=== PATIENT | male | born 1970 | race Caucasian/White ===

== ENCOUNTER 2017-05-20 08:55 | Emergency (ER) | payer BC ==
[~2017-05-20] VITALS: Ht 185.4 cm; Wt 110.0 kg
[2017-05-20 08:57] VITALS: BP 125/94; TEMP 98.2; O2SAT 99
[2017-05-20 09:07] VITALS: BP 116/81; PULSE 55; RESP 24; O2SAT 100
[2017-05-20] MEDS ORDERED: ONDANSETRON HCL 4 MG/2 ML VIAL IVP ONE (09:45)
[2017-05-20] MEDS ORDERED: KETOROLAC TROMETHAMINE 30 MG/ML (IVP) VIAL IVP ONE (09:45)
[2017-05-20] MEDS ORDERED: SODIUM CHLORIDE 0.9% FLUSH 10 ML FLUSH IV FLUSH PRN (09:45)
[2017-05-20 10:34] LABS: BACTERIA, URINE FEW /hpf; BLOOD, URINE LARGE (NEG); CALCIUM OXALATE CRYSTALS,URINE OCC /hpf; GLUCOSE,URINE NEG (NEG); KETONE, URINE NEG (NEG); MUCUS URINE FEW /lpf (OCC); NITRITE,URINE NEG (NEG); PH, URINE 5.5 (5.0-8.5)
[2017-05-20 10:36] LABS: URINE COLOR YELLOW (YELLW/STRAW)
[2017-05-20 10:37] LABS: COMMENT (UR) CULT NOT INDICATED; CULTURE IF INDICATED CULT NOT INDICATED
--- NOTE | 2017-05-20 10:39 | RADRPT ---
EXAM DATE/TIME: 05/20/2017 10:19 [facility] COMPARISON: No previous studies available for comparison. INDICATIONS : Left flank pain since this morning ORAL CONTRAST: No oral contrast ingested. RADIATION DOSE: 8.53 CTDIvol (mGy) MEDICAL HISTORY : Renal calculi. SURGICAL HISTORY : Appendectomy. ENCOUNTER: Initial ACUITY: 1 day PAIN SCALE: 5/10 LOCATION: Left flank TECHNIQUE: Volumetric scanning of the abdomen and pelvis was performed. Using automated exposure control and ad justment of the mA and/or kV according to patient size, radiation dose was kept as low as reasonably achievable to obtain optimal diagnostic quality images. DICOM format image data is available electro nically for review and comparison. FINDINGS: CT Abdomen: The liver, spleen, pancreas, right kidney, adrenals are unremarkable. There is an approxi mate 6 mm right proximal ureteral stone past the UPJ causing slight hydronephrosis. There are 5 separ ate small stones in the left kidney the largest measures 5 mm in size. There is no evidence for any a ppreciable pathological adenopathy, free fluid, or bowel obstruction. CT pelvis: There is no evidence for mass, abscess formation, or any significant adenopathy within the pelvis. CONCLUSION: There is slight hydronephrosis in the left kidney due to an approximate 6 mm proximal ureteral stone with additional stones in the left kidney as well. Jamie Ward MD on May 20, 2017 at 10:32 Board Certified Radiologist. This report was verified electronically.
[2017-05-20 10:44] LABS: AUTOMATED NEUTROPHIL # 5.5 TH/MM3 (1.8-7.7); BASOPHIL # 0.1 TH/MM3 (0-0.2); BASOPHIL % 0.7 % (0.0-2.0); EOSINOPHIL # 0.3 TH/MM3 (0-0.4); HEMATOCRIT 46.2 % (39.0-51.0); HEMO FLAGS DIFF FINAL; LYMPH % 29.7 % (9.0-44.0); LYMPHOCYTE # 2.7 TH/MM3 (1.0-4.8); MEAN CELL VOLUME 89.9 FL (80.0-100.0); MEAN CORPUSCULAR HEMOGLOBIN 30.3 PG (27.0-34.0); MEAN CORPUSCULAR HGB CONC 33.7 % (32.0-36.0); MONO % 7.1 % (0.0-8.0); NEUT % 59.5 % (16.0-70.0); PLATELET COUNT 253 TH/MM3 (150-450); RED BLOOD COUNT 5.14 MIL/MM3 (4.50-5.90); RED CELL DISTRIBUTION WIDTH 12.6 % (11.6-17.2); WHITE BLOOD COUNT 9.3 TH/MM3 (4.0-11.0)
--- NOTE | 2017-05-20 10:52 | PD ---
HPI Chief Complaint: Flank/Kidney Pain Time Seen by Provider: 09:09 Travel History International Travel<30 days: No Contact w/Intl Traveler<30days: No Traveled to known affect area: No History of Present Illness HPI 47-year-old male complains of left flank pain. It started this morning. He has been feeling nauseated. The pain radiates to the left lower quadrant. He noticed dark urine this morning. No fever. He believes he may have had trace blood in his urine a few days ago. He reports a prior history of kidney stones , twice prior. Onset sudden. Severity moderate to severe. PFSH Past Medical History Diminished Hearing: No Genitourinary: Yes (stones ) Past Surgical History Appendectomy: Yes Genitourinary Surgery: Yes (LITHOTRIPSY) Pacemaker: No Social History Alcohol Use: Yes Tobacco Use: No Substance Use: No Allergies-Medications (Allergen,Severity, Reaction): Coded Allergies: No Known Allergies (Verified , 05/20/17) Reported Meds & Prescriptions Reported Meds & Active Scripts Active Zofran Odt (Ondansetron Odt) 4 Mg Tab 4 Mg SL Q12HR PRN Flomax (Tamsulosin HCl) 0.4 Mg Cap 0.4 Mg PO HS Percocet (Oxycodone-Acetaminophen) 5-325 mg Tab 1-2 Tab PO Q6H PRN Review of Systems Except as stated in HPI: all other systems reviewed are Neg General / Constitutional: No: Fever Cardiovascular: No: Chest Pain or Discomfort, Palpitations, Irregular Rhythm Physical Exam Narrative GENERAL: 47-year-old male well-nourished well-developed mild to moderate distress SKIN: Warm and dry. HEAD: Atraumatic. Normocephalic. EYES: Pupils equal and round. No scleral icterus. No injection or drainage. ENT: No nasal bleeding or discharge. Mucous membranes pink and moist. NECK: Trachea midline. No JVD. CARDIOVASCULAR: Regular rate and rhythm. RESPIRATORY: No accessory muscle use. Clear to auscultation. Breath sounds equal bilaterally. GASTROINTESTINAL: Abdomen soft, non-tender, nondistended. Hepatic and splenic margins not palpable. Tenderness to percussion left flank MUSCULOSKELETAL: Extremities without clubbing, cyanosis, or edema. No obvious deformities. NEUROLOGICAL: Awake and alert. No obvious cranial nerve deficits. Motor grossly within normal limits. Five out of 5 muscle strength in the arms and legs. Normal speech. PSYCHIATRIC: Appropriate mood and affect; insight and judgment normal. Data Data Last Documented VS Vital Signs Date Time Temp Pulse Resp B/P (MAP) Pulse Ox O2 Delivery O2 Flow Rate FiO2 05/20/17 11:40 111/67 (82) 05/20/17 11:21 64 16 100 Room Air 05/20/17 08:57 98.2 Vital signs reviewed Orders Orders Basic Metabolic Panel (Bmp) (05/20/17 09:41) Complete Blood Count With Diff (05/20/17 09:41) Urinalysis - C+S If Indicated (05/20/17 09:41) Ct Abd/Pel W/O Iv Contrast (05/20/17 09:41) Iv Access Insert/Monitor (05/20/17 09:41) Ecg Monitoring (05/20/17 09:41) Oximetry (05/20/17 09:41) Ondansetron Inj (Zofran Inj) (05/20/17 09:45) Sodium Chloride 0.9% Flush (Ns Flush) (05/20/17 09:45) Ketorolac Inj (Toradol Inj) (05/20/17 09:45) Labs Laboratory Tests Test 05/20/17 09:55 White Blood Count 9.3 TH/MM3 Red Blood Count 5.14 MIL/MM3 Hemoglobin 15.6 GM/DL Hematocrit 46.2 % Mean Corpuscular Volume 89.9 FL Mean Corpuscular Hemoglobin 30.3 PG Mean Corpuscular Hemoglobin Concent 33.7 % Red Cell Distribution Width 12.6 % Platelet Count 253 TH/MM3 Mean Platelet Volume 8.3 FL Neutrophils (%) (Auto) 59.5 % Lymphocytes (%) (Auto) 29.7 % Monocytes (%) (Auto) 7.1 % Eosinophils (%) (Auto) 3.0 % Basophils (%) (Auto) 0.7 % Neutrophils # (Auto) 5.5 TH/MM3 Lymphocytes # (Auto) 2.7 TH/MM3 Monocytes # (Auto) 0.7 TH/MM3 Eosinophils # (Auto) 0.3 TH/MM3 Basophils # (Auto) 0.1 TH/MM3 CBC Comment DIFF FINAL Differential Comment Urine Color YELLOW Urine Turbidity HAZY Urine pH 5.5 Urine Specific [place] 1.032 Urine Protein 30 mg/dL Urine Glucose (UA) NEG mg/dL Urine Ketones NEG mg/dL Urine Occult Blood LARGE Urine Nitrite NEG Urine Bilirubin NEG Urine Urobilinogen LESS THAN 2.0 MG/DL Urine Leukocyte Esterase NEG Urine RBC /hpf Urine WBC 3 /hpf Urine Calcium Oxalate Crystals OCC /hpf Urine Bacteria FEW /hpf Urine Mucus FEW /lpf Microscopic Urinalysis Comment CULT NOT INDICATED Blood Urea Nitrogen 19 MG/DL Creatinine 0.99 MG/DL Random Glucose 112 MG/DL Calcium Level 8.3 MG/DL Sodium Level 137 MEQ/L Potassium Level 4.0 MEQ/L Chloride Level 103 MEQ/L Carbon Dioxide Level 25.7 MEQ/L Anion Gap 8 MEQ/L Estimat Glomerular Filtration Rate 82 ML/MIN MDM Medical Decision Making Medical Screen Exam Complete: Yes Emergency Medical Condition: Yes Medical Record Reviewed: Yes Differential Diagnosis Gastritis, pancreatitis, appendicitis, acute cholecystitis, ascending cholangitis, AAA, perforated viscous, mesenteric ischemia, hepatitis, cystitis, hydronephrosis/hydroureter/nephroureter calculus, mesenteric adenitis, biliary colic Narrative Course CBC & BMP Diagram 05/20/17 09:55 Calcium Level 8.3 L Urinalysis shows hematuria Last 24 hours Impressions Abdomen/Pelvis CT 05/20/17 0941 Signed Impressions: Service Date/Time: April 10:19 - CONCLUSION: There is slight hydronephrosis in the left kidney due to an approximate 6 mm proximal ureteral stone with additional stones in the left kidney as well. Jamie Ward MD The patient is resting comfortably and feels better, is alert and in no distress. The patients results and examination findings were discussed. The repeat examination is unremarkable and benign. The history, exam, diagnostic testing, and current condition do not suggest any significant pathology to warrant further testing, continued ED treatment, admission, or surgical evaluation at this point. The vital signs have been stable. The patient does not have uncontrollable pain, intractable vomiting, or other significant symptoms. The patient's condition is stable and appropriate for discharge. The patient will pursue further outpatient evaluation with a primary care physician or other designated or consulting physician as indicated in the discharge instructions. The patient expressed understanding and was agreeable with this plan. Diagnosis Primary Impression: Hydroureteronephrosis Additional Impression: Renal lithiasis Referrals: Fadi Olson MD 2 days Additional Instructions: You have a choice when it comes to health care, and we are glad that you chose [facility]. Hopefully, we have met your expectations on today's visit. You are welcome to return to [facility] at any time, as we are committed to meeting the health care needs of our community. Med/Other Pt SpecificInfo: Prescription(s) given Scripts Ondansetron Odt (Zofran Odt) 4 Mg Tab 4 MG SL Q12HR Y for Nausea/Vomiting, #10 TAB 0 Refills Prov: Sohail Cody MD 05/20/17 Tamsulosin (Flomax) 0.4 Mg Cap 0.4 MG PO HS for Manage Prostate Problems, #4 CAP 0 Refills Prov: Sohail Cody MD 05/20/17 Oxycodone-Acetaminophen (Percocet) 5-325 mg Tab 1-2 TAB PO Q6H Y for PAIN SCALE 6 TO 10, #20 TAB 0 Refills Prov: Sohail Cody MD 05/20/17 Disposition: 01 DISCHARGE HOME Condition: Stable Sohail Cody MD May 20, 2017 10:52
[2017-05-20 10:57] LABS: BICARBONATE 25.7 MEQ/L (21.0-32.0)
[2017-05-20] MEDS ORDERED: TAMS5CAP PO (11:05)
[2017-05-20] MEDS ORDERED: PERC5TAB12 PO (11:05)
[2017-05-20 11:21] VITALS: BP 112/67; PULSE 64; RESP 16; O2SAT 100
[2017-05-20] MEDS ORDERED: ZOFR4TAB3 SL (11:30)
[2017-05-20 11:40] VITALS: BP 111/67
[2017-06-09] MEDS ORDERED: IBUP200T2 PO (10:36)
[2017-06-09] MEDS ORDERED: OXYC-255 PO (11:11)
== END 2017-05-20 11:41 | disposition home or self-care (01) ==
LOC: NEPD 08:55
DX: N13.30 Unspecified hydronephrosis (principal); N20.0 Calculus of kidney; Z87.442 Personal history of urinary calculi
CPT/HCPCS: 74176; 80048; 81001; 85025; 96374; 96375; 99285; J1885; J2405

== ENCOUNTER 2017-06-05 06:15 | Emergency (ER) | payer BC ==
[~2017-06-05] VITALS: Ht 185.4 cm; Wt 114.0 kg
[~2017-06-05 06:15] MED LIST: PERC5TAB12 PO; TAMS5CAP PO; ZOFR4TAB3 SL
[2017-06-05 06:17] VITALS: BP 148/75; PULSE 68; RESP 15; TEMP 97.9; O2SAT 100
--- NOTE | 2017-06-05 06:26 | PD ---
HPI Chief Complaint: Flank/Kidney Pain Time Seen by Provider: 06:26 Travel History International Travel<30 days: No Contact w/Intl Traveler<30days: No Traveled to known affect area: No History of Present Illness HPI 47-year-old male came to the emergency room with history of left lower quadrant pain. Patient says the pain started at 10:30 last night and since then he has been nauseous. The pain waxes and wanes. Currently 7 out of 10. He did vomit once. Patient was in the emergency room 3 weeks ago for pain in the left flank area and was diagnosed with ureteral calculi. He has had history of kidney stones in the past. He says this time the pain feels the same except that the location and stroke the flank has moved lower and more in the front. No history of hematuria. Vital signs are otherwise stable. [facility] Past Medical History Narrative Medical List of his past medical, surgical, social and family history is reviewed from the nursing note. Diminished Hearing: No Genitourinary: Yes (stones ) Past Surgical History Appendectomy: Yes Genitourinary Surgery: Yes (LITHOTRIPSY) Pacemaker: No Other Surgery: Yes Social History Alcohol Use: Yes (weekends) Tobacco Use: Yes (chew) Substance Use: No Allergies-Medications (Allergen,Severity, Reaction): Coded Allergies: No Known Allergies (Verified , 06/09/17) Comments No known drug allergies. Reported Meds & Prescriptions Reported Meds & Active Scripts Active Endocet (Oxycodone-Acetaminophen) 5-325 mg Tab 2 Tab PO Q6H PRN Percocet (Oxycodone-Acetaminophen) 5-325 mg Tab 1 Tab PO Q6H PRN Levaquin (Levofloxacin) 500 Mg Tablet 500 Mg PO DAILY 7 Days Flomax (Tamsulosin HCl) 0.4 Mg Cap 0.4 Mg PO HS Percocet (Oxycodone-Acetaminophen) 5-325 mg Tab 1-2 Tab PO Q6H PRN Reported Ibuprofen 200 Mg Tab 200 Mg PO Q4H PRN Narrative Medication List of his home medications reviewed from the nursing note. Review of Systems Except as stated in HPI: all other systems reviewed are Neg Physical Exam Narrative GENERAL: Awake, alert, moderate distress SKIN: Focused skin assessment warm/dry. HEAD: Atraumatic. Normocephalic. EYES: Pupils equal and round. No scleral icterus. No injection or drainage. ENT: No nasal bleeding or discharge. Mucous membranes pink and moist. NECK: Trachea midline. No JVD. CARDIOVASCULAR: Regular rate and rhythm. No murmur appreciated. RESPIRATORY: No accessory muscle use. Clear to auscultation. Breath sounds equal bilaterally. GASTROINTESTINAL: Abdomen soft, non-tender, nondistended. Hepatic and splenic margins not palpable. MUSCULOSKELETAL: No obvious deformities. No clubbing. No cyanosis. No edema. NEUROLOGICAL: Awake and alert. No obvious cranial nerve deficits. Motor grossly within normal limits. Normal speech. PSYCHIATRIC: Appropriate mood and affect; insight and judgment normal. Data Data Last Documented VS Orders Orders Complete Blood Count With Diff (06/05/17 06:33) Basic Metabolic Panel (Bmp) (06/05/17 06:33) Urinalysis - C+S If Indicated (06/05/17 06:33) Ct Abd/Pel W/O Iv Contrast (06/05/17 06:33) Ecg Monitoring (06/05/17 06:33) Iv Access Insert/Monitor (06/05/17 06:33) Morphine Inj (Morphine Inj) (06/05/17 06:45) Sodium Chloride 0.9% Flush (Ns Flush) (06/05/17 06:45) Sodium Chlor 0.9% 1000 Ml Inj (Ns 1000 M (06/05/17 06:33) Ondansetron Inj (Zofran Inj) (06/05/17 06:45) Tamsulosin (Flomax) (06/05/17 06:45) Ondansetron Inj (Zofran Inj) (06/05/17 06:45) Ketorolac Inj (Toradol Inj) (06/05/17 08:30) Oxycodone-Acetamin 5-325 Mg (Percocet (06/05/17 08:30) Levofloxacin 500 Mg Premix Inj (Levaquin (06/05/17 08:30) Labs Laboratory Tests Test 06/05/17 06:35 White Blood Count 12.6 TH/MM3 Red Blood Count 5.13 MIL/MM3 Hemoglobin 15.9 GM/DL Hematocrit 45.7 % Mean Corpuscular Volume 89.0 FL Mean Corpuscular Hemoglobin 31.0 PG Mean Corpuscular Hemoglobin Concent 34.9 % Red Cell Distribution Width 11.8 % Platelet Count 223 TH/MM3 Mean Platelet Volume 7.8 FL Neutrophils (%) (Auto) 82.9 % Lymphocytes (%) (Auto) 10.2 % Monocytes (%) (Auto) 6.1 % Eosinophils (%) (Auto) 0.5 % Basophils (%) (Auto) 0.3 % Neutrophils # (Auto) 10.5 TH/MM3 Lymphocytes # (Auto) 1.3 TH/MM3 Monocytes # (Auto) 0.8 TH/MM3 Eosinophils # (Auto) 0.1 TH/MM3 Basophils # (Auto) 0.0 TH/MM3 CBC Comment DIFF FINAL Differential Comment Urine Color YELLOW Urine Turbidity CLEAR Urine pH 6.0 Urine Specific [place] 1.025 Urine Protein NEG mg/dL Urine Glucose (UA) NEG mg/dL Urine Ketones NEG mg/dL Urine Occult Blood MOD Urine Nitrite NEG Urine Bilirubin NEG Urine Urobilinogen LESS THAN 2.0 MG/DL Urine Leukocyte Esterase NEG Urine RBC 63 /hpf Urine WBC 2 /hpf Urine Mucus FEW /lpf Microscopic Urinalysis Comment CULT NOT INDICATED Blood Urea Nitrogen 20 MG/DL Creatinine 1.33 MG/DL Random Glucose 111 MG/DL Calcium Level 9.2 MG/DL Sodium Level 139 MEQ/L Potassium Level 3.7 MEQ/L Chloride Level 104 MEQ/L Carbon Dioxide Level 25.3 MEQ/L Anion Gap 10 MEQ/L Estimat Glomerular Filtration Rate 58 ML/MIN [facility] Medical Decision Making Medical Screen Exam Complete: Yes Emergency Medical Condition: Yes Medical Record Reviewed: Yes Differential Diagnosis Ureteral colic, acute diverticulitis, UTI Narrative Course 6:36 AM patient has been medicated for pain and nausea. I'm giving him IV fluid bolus and by mouth Flomax as well. Upon looking back in his medical record patient was indeed here 3 weeks ago and then showed a 6 mm stone in the proximal ureter on the left side. In my opinion may be that stone has moved at this point. I have ordered another CAT scan. Awaiting for the blood test and the CAT scan to be done and resulted. Case will be signed out to the oncoming ER physician at 7 PM. Procedures EKG Prior to Arrival: No Scripts Oxycodone-Acetaminophen (Percocet) 5-325 mg Tab 1 TAB PO Q6H Y for PAIN, #10 TAB 0 Refills Prov: Rhoda Handley MD 06/05/17 Levofloxacin (Levaquin) 500 Mg Tablet 500 MG PO DAILY for Infection for 7 Days, TAB 0 Refills Prov: Rhoda Handley MD 06/05/17 Tamsulosin (Flomax) 0.4 Mg Cap 0.4 MG PO HS for Manage Prostate Problems, #7 CAP 0 Refills Prov: Rhoda Handley MD 06/05/17 Rosaura Olivarez MD Jun 05, 2017 06:26
[2017-06-05] MEDS ORDERED: SODIUM CHLOR 0.9% 1000 ML INJ 1,000 ML IV ONE (06:33)
[2017-06-05] MEDS ORDERED: TAMSULOSIN HCL 0.4 MG CAP PO ONE (06:45)
[2017-06-05] MEDS ORDERED: SODIUM CHLORIDE 0.9% FLUSH 10 ML FLUSH IVF PRN (06:45)
[2017-06-05] MEDS ORDERED: ONDANSETRON HCL 4 MG/2 ML VIAL IM ONE (06:45)
[2017-06-05] MEDS ORDERED: MORPHINE SULFATE 4 MG/ML INJ IV ONE (06:45)
[2017-06-05] MEDS ORDERED: ONDANSETRON HCL 4 MG/2 ML VIAL IV PUSH ONE (06:45)
[2017-06-05 07:05] VITALS: BP 145/88; PULSE 64; RESP 16; TEMP 97.9; O2SAT 98
[2017-06-05 07:06] LABS: AUTOMATED NEUTROPHIL # 10.5 TH/MM3 (1.8-7.7); BASOPHIL % 0.3 % (0.0-2.0); EOSINOPHIL # 0.1 TH/MM3 (0-0.4); EOSINOPHIL % 0.5 % (0.0-4.0); HEMATOCRIT 45.7 % (39.0-51.0); HEMO FLAGS DIFF FINAL; LYMPH % 10.2 % (9.0-44.0); LYMPHOCYTE # 1.3 TH/MM3 (1.0-4.8); MEAN CORPUSCULAR HGB CONC 34.9 % (32.0-36.0); MONO % 6.1 % (0.0-8.0); NEUT % 82.9 % (16.0-70.0); PLATELET COUNT 223 TH/MM3 (150-450); RED BLOOD COUNT 5.13 MIL/MM3 (4.50-5.90); RED CELL DISTRIBUTION WIDTH 11.8 % (11.6-17.2); WHITE BLOOD COUNT 12.6 TH/MM3 (4.0-11.0)
[2017-06-05 07:17] LABS: BLOOD, URINE MOD (NEG); COMMENT (UR) CULT NOT INDICATED; CULTURE IF INDICATED CULT NOT INDICATED; GLUCOSE,URINE NEG (NEG); KETONE, URINE NEG (NEG); MUCUS URINE FEW /lpf (OCC); NITRITE,URINE NEG (NEG); URINE COLOR YELLOW (YELLW/STRAW)
[2017-06-05 07:22] LABS: BICARBONATE 25.3 MEQ/L (21.0-32.0); POTASSIUM 3.7 MEQ/L (3.5-5.1)
--- NOTE | 2017-06-05 07:39 | RADRPT ---
EXAM DATE/TIME: 06/05/2017 07:14 [facility] COMPARISON: CT ABDOMEN & PELVIS W/O CONTRAST, May 20, 2017, 10:19. INDICATIONS : Left flank pain today. ORAL CONTRAST: No oral contrast ingested. RADIATION DOSE: 8.55 CTDIvol (mGy) MEDICAL HISTORY : Renal calculi. SURGICAL HISTORY : Appendectomy. ENCOUNTER: Initial ACUITY: 1 day PAIN SCALE: 9/10 LOCATION: Left flank TECHNIQUE: Volumetric scanning of the abdomen and pelvis was performed. Using automated exposure control and ad justment of the mA and/or kV according to patient size, radiation dose was kept as low as reasonably achievable to obtain optimal diagnostic quality images. DICOM format image data is available electro nically for review and comparison. FINDINGS: LOWER LUNGS: The visualized lower lungs are clear. LIVER: Homogeneous density without lesion. There is no dilation of the biliary tree. No calcified gallston es. SPLEEN: Mildly enlarged measuring 14.5 cm. PANCREAS: Within normal limits. KIDNEYS: The right kidney demonstrates no abnormality. There are 3 nonobstructing left renal stones measuring between 2 mm and 4 mm, stable from the prior study. A triangular-shaped 6 x 4 mm stone is present in the left proximal ureter near the ureteropelvic junction. It is causing moderate to severe left hydro nephrosis and mild perinephric inflammation. No other ureteral stone is present. ADRENAL GLANDS: Within normal limits. VASCULAR: There is no aortic aneurysm. There is mild atherosclerotic disease. BOWEL/MESENTERY: The stomach, small bowel, and colon demonstrate no acute abnormality. There is no free intraperitone al air or fluid. ABDOMINAL WALL: Within normal limits. RETROPERITONEUM: There is no lymphadenopathy. BLADDER: No wall thickening or mass. REPRODUCTIVE: Within normal limits. INGUINAL: There is no lymphadenopathy or hernia. MUSCULOSKELETAL: No acute abnormality. CONCLUSION: 1. The triangular 6 x 4 mm stone in the left proximal ureter near the UPJ has not progressed distally since the prior study and there is increased hydronephrosis and inflammatory change of the left kidn ey. 2. There are 3 stable nonobstructing stones in the left kidney measuring up to 4 mm. Ez Gamboa MD on June 05, 2017 at 7:33 Board Certified Radiologist. This report was verified electronically.
[2017-06-05] MEDS ORDERED: LEVOFLOXACIN 500 MG PREMIX INJ 100 ML IV ONE (08:30)
[2017-06-05] MEDS ORDERED: oxyCODONE/ACETAMINOPHEN 5 MG/325 MG TAB PO ONE (08:30)
[2017-06-05] MEDS ORDERED: KETOROLAC TROMETHAMINE 30 MG/ML (IVP) VIAL IV PUSH ONE (08:30)
[2017-06-05 09:09] VITALS: BP 136/82; PULSE 78; RESP 17; TEMP 97.8; O2SAT 99
[2017-06-05] MEDS ORDERED: TAMS5CAP PO (09:27)
[2017-06-05] MEDS ORDERED: PERC5TAB12 PO (09:27)
[2017-06-05] MEDS ORDERED: LEVA500T20 PO (09:27)
--- NOTE | 2017-06-05 09:27 | PD ---
Physical Exam Narrative Since sign out to me by Dr. Olivarez. Please see her documentation for complete details. The Patient is a 47-year-old male who comes in complaining of left-sided abdominal pain. He was here 3 weeks ago and diagnosed with a kidney stone. He says he was feeling better until today when the pain came on suddenly. He has not seen urology. Data Data Last Documented VS Vital Signs Date Time Temp Pulse Resp B/P (MAP) Pulse Ox O2 Delivery O2 Flow Rate FiO2 06/05/17 09:09 97.8 78 17 136/82 (100) 99 Room Air Orders Orders Complete Blood Count With Diff (06/05/17 06:33) Basic Metabolic Panel (Bmp) (06/05/17 06:33) Urinalysis - C+S If Indicated (06/05/17 06:33) Ct Abd/Pel W/O Iv Contrast (06/05/17 06:33) Ecg Monitoring (06/05/17 06:33) Iv Access Insert/Monitor (06/05/17 06:33) Morphine Inj (Morphine Inj) (06/05/17 06:45) Sodium Chloride 0.9% Flush (Ns Flush) (06/05/17 06:45) Sodium Chlor 0.9% 1000 Ml Inj (Ns 1000 M (06/05/17 06:33) Ondansetron Inj (Zofran Inj) (06/05/17 06:45) Tamsulosin (Flomax) (06/05/17 06:45) Ondansetron Inj (Zofran Inj) (06/05/17 06:45) Ketorolac Inj (Toradol Inj) (06/05/17 08:30) Oxycodone-Acetamin 5-325 Mg (Percocet (06/05/17 08:30) Levofloxacin 500 Mg Premix Inj (Levaquin (06/05/17 08:30) Labs Laboratory Tests Test 06/05/17 06:35 White Blood Count 12.6 TH/MM3 Red Blood Count 5.13 MIL/MM3 Hemoglobin 15.9 GM/DL Hematocrit 45.7 % Mean Corpuscular Volume 89.0 FL Mean Corpuscular Hemoglobin 31.0 PG Mean Corpuscular Hemoglobin Concent 34.9 % Red Cell Distribution Width 11.8 % Platelet Count 223 TH/MM3 Mean Platelet Volume 7.8 FL Neutrophils (%) (Auto) 82.9 % Lymphocytes (%) (Auto) 10.2 % Monocytes (%) (Auto) 6.1 % Eosinophils (%) (Auto) 0.5 % Basophils (%) (Auto) 0.3 % Neutrophils # (Auto) 10.5 TH/MM3 Lymphocytes # (Auto) 1.3 TH/MM3 Monocytes # (Auto) 0.8 TH/MM3 Eosinophils # (Auto) 0.1 TH/MM3 Basophils # (Auto) 0.0 TH/MM3 CBC Comment DIFF FINAL Differential Comment Urine Color YELLOW Urine Turbidity CLEAR Urine pH 6.0 Urine Specific [place] 1.025 Urine Protein NEG mg/dL Urine Glucose (UA) NEG mg/dL Urine Ketones NEG mg/dL Urine Occult Blood MOD Urine Nitrite NEG Urine Bilirubin NEG Urine Urobilinogen LESS THAN 2.0 MG/DL Urine Leukocyte Esterase NEG Urine RBC 63 /hpf Urine WBC 2 /hpf Urine Mucus FEW /lpf Microscopic Urinalysis Comment CULT NOT INDICATED Blood Urea Nitrogen 20 MG/DL Creatinine 1.33 MG/DL Random Glucose 111 MG/DL Calcium Level 9.2 MG/DL Sodium Level 139 MEQ/L Potassium Level 3.7 MEQ/L Chloride Level 104 MEQ/L Carbon Dioxide Level 25.3 MEQ/L Anion Gap 10 MEQ/L Estimat Glomerular Filtration Rate 58 ML/MIN [facility] Supervised Visit with HANK: No Narrative Course Labs show a creatinine of 1.33, which is up from 0.93 weeks ago. She the abdomen and pelvis performed shows a 6 x 4 mm triangular stone that is causing hydronephrosis, obstructing at the UVJ. There is inflammation around the kidney. Spoke with Dr. Diaz of urology, who recommends pain control and follow-up in the office. He says as long as the patient is tolerating fluids and his pain is under control he can go home and follow-up in the office. He suggests increasing his fluid intake. He was having pain again. He was given a dose of Toradol as well as Percocet. He says he feels much better. Will be discharged with prescriptions for Flomax , Percocet, Levaquin. He is advised to follow-up with urology as soon as possible. Advised to return to the ED as needed for any worsening symptoms. Diagnosis Primary Impression: Renal stone Referrals: Trever Diaz MD call for appointment Patient Instructions: General Instructions, Kidney Stones (ED) Additional Instruction: Drink plenty of fluids. Take pain medicine as needed. Follow up with urology as soon as possible. Take all of your antibiotic. Return to the ED as needed for any worsening symptoms. Scripts Oxycodone-Acetaminophen (Percocet) 5-325 mg Tab 1 TAB PO Q6H Y for PAIN, #10 TAB 0 Refills Prov: Rhoda Handley MD 06/05/17 Levofloxacin (Levaquin) 500 Mg Tablet 500 MG PO DAILY for Infection for 7 Days, TAB 0 Refills Prov: Rhoda Handley MD 06/05/17 Tamsulosin (Flomax) 0.4 Mg Cap 0.4 MG PO HS for Manage Prostate Problems, #7 CAP 0 Refills Prov: Rhoda Handley MD 06/05/17 Disposition: 01 DISCHARGE HOME Condition: Stable Rhoda Handley MD Jun 05, 2017 09:27
[2017-06-05 09:40] VITALS: BP 122/81; TEMP 97.8
[2017-06-09] MEDS ORDERED: IBUP200T2 PO (10:36)
[2017-06-09] MEDS ORDERED: OXYC-255 PO (11:11)
== END 2017-06-05 09:41 | disposition home or self-care (01) ==
LOC: NEPC 06:15
DX: N20.0 Calculus of kidney (principal); R11.0 Nausea; F17.220 Nicotine dependence, chewing tobacco, uncomplicated; Z79.1 Long term (current) use of non-steroidal anti-inflammatories (NSAID); Z79.899 Other long term (current) drug therapy
CPT/HCPCS: 74176; 80048; 81001; 85025; 96361; 96365; 96375; 99285; J1885; J1956; J2270; J2405; J7030

== ENCOUNTER → 2017-06-16 | Day surgery (SDC) | payer BC ==
[~2017-06-16] VITALS: Ht 185.4 cm; Wt 107.2 kg
[~2017-06-16] MED LIST changes: +CHLORHEXIDINE GLUCONATE 2 % 1 PACK (2 CLOTHS) TOPICAL PRN; +FAMOTIDINE 20 MG/2 ML VIAL ONE; +INSULIN HUMAN REGULAR 1,000 UNITS/10 ML VIAL SQ PRN; +LACTATED RINGER'S 1000 ML IV PRN; +METOPROLOL TARTRATE 25 MG TAB PO PRN; +MIDAZOLAM HCL 2 MG/2 ML VIAL ONE; -PERC5TAB12 PO; +POVIDONE IODINE 5% (ANTISEPSIS KIT) 4 APPLICATIONS EACH NARE PRN; +PROPOFOL 200 MG/20 ML AMP IV ONE; +SODIUM CHLORID 0.9% 500 ML IV PRN; -TAMS5CAP PO; -ZOFR4TAB3 SL; +ceFAZolin 1,000 MG/NS 100 ML IV SCH
--- NOTE | 2017-06-16 08:31 | RADRPT ---
EXAM DATE/TIME: 06/16/2017 08:09 [facility] COMPARISON: CT ABDOMEN & PELVIS W/O CONTRAST, June 05, 2017, 7:14. INDICATIONS : Pre-op lithotripsy. MEDICAL HISTORY : None. SURGICAL HISTORY : Appendectomy. ENCOUNTER: Initial ACUITY: 1 day PAIN SCORE: 7/10 LOCATION: abdomen FINDINGS: The bowel gas pattern is within normal limits. The request is a pre-lithotripsy examination. I do not identify the patient stone which was in the left ureter. The osseous structures demonstrate degenerative changes in the spine but are otherwise intact. CONCLUSION: 1. The patient's left ureteral stone is not identified by KUB. Sohail Hopkins MD on June 16, 2017 at 8:28 Board Certified Radiologist. This report was verified electronically.
--- NOTE | 2017-06-16 10:51 | PD.OP ---
Operative Report Date of Surgery: Jun 16, 2017 Preoperative Diagnosis: Left proximal ureteral calculus Postoperative Diagnosis: Same Procedure: Left extracorporeal shockwave lithotripsy Anesthesia: TIVA Surgeon: Cecilio Yang Diabetes Nurse(s): None Resident Surgeon: None Operation and Findings: 47-year-old male presented to the office with findings of a 6 mm proximal left ureteral calculus with hydronephrosis. He was referred to the office and the plan was for the patient undergo left extracorporeal shockwave lithotripsy. Risk and benefits were discussed preoperatively and he was willing to proceed. Patient was brought to the operating room and identified by myself as Emmanuel Grant. He was placed in the supine position on the operating table and received preprocedure antibiotics. TIVA anesthesia was administered. Under fluoroscopic and ultrasound imaging guidance the stone was visualized in the left proximal ureter. Patient then underwent 3000 shocks at a power level varying from 11-20. Good fragmentation the stone was visualized. He tolerated the procedure well and there no complications. He will follow-up in the office in one month and obtain a KUB x-ray prior. Ceciloi Yang DO Jun 16, 2017 10:51
[2017-06-16 12:00] VITALS: BP 136/76; PULSE 88; RESP 16; TEMP 97.6; O2SAT 99
== END | disposition home or self-care (01) ==
LOC: HSDC 07:41
PROVIDERS: ATTEND Urology
DX: N20.1 Calculus of ureter (principal)
CPT/HCPCS: 00873; 50590; 74000; J0690; J2250; J7120; J3010

== ENCOUNTER → 2017-11-04 | Day surgery (SDC) | payer BC ==
[~2017-11-04] MED LIST changes: +ACETAMINOPHEN 1000 MG/100 ML 100 ML IV ONE; -CHLORHEXIDINE GLUCONATE 2 % 1 PACK (2 CLOTHS) TOPICAL PRN; +DEXAMETHASONE SOD PHOS 4 MG/ML VIAL IV ONE; +DO NOT ADM ANY ANTICOAGULANT DRUGS PRN; -FAMOTIDINE 20 MG/2 ML VIAL ONE; -INSULIN HUMAN REGULAR 1,000 UNITS/10 ML VIAL SQ PRN; +IOHEXOL 300 MG/ML 100 ML BTL (for Rad CT) OTHER ONE; +KETOROLAC TROMETHAMINE 30 MG/ML (IVP) VIAL IV PUSH ONE; +LACTATED RINGER'S 1000 ML INJ 1,000 ML IV ONE; -LACTATED RINGER'S 1000 ML IV PRN; +LIDOCAINE HCL 1% PF 5 ML SYRINGE OTHER ONE; -METOPROLOL TARTRATE 25 MG TAB PO PRN; +MORPHINE SULFATE 2 MG/ML INJ IV PUSH ONE; +MORPHINE SULFATE 2 MG/ML INJ IV PUSH PRN; +ONDANSETRON HCL 4 MG/2 ML VIAL IV ONE; +ONDANSETRON HCL 4 MG/2 ML VIAL IV PUSH PRN; -POVIDONE IODINE 5% (ANTISEPSIS KIT) 4 APPLICATIONS EACH NARE PRN; +ROCURONIUM INJ 50 MG/5 ML SYRINGE IV PUSH ONE; +SODIUM CHLOR 0.9% 1000 ML INJ 1,000 ML IV ONE; +SODIUM CHLOR 0.9% 1000 ML INJ 1,000 ML IV SCH; -SODIUM CHLORID 0.9% 500 ML IV PRN; +SODIUM CHLORIDE 0.9% FLUSH 10 ML FLUSH IVF PRN; +SODIUM CHLORIDE 0.9% INJ 100 ML ONE; +SUCCINYLCHOLINE CHLORIDE 200 MG/10 ML VIAL IV ONE; -ceFAZolin 1,000 MG/NS 100 ML IV SCH; +ceFAZolin INJ 1,000 MG VIAL ONE; +oxyCODONE/ACETAMINOPHEN 5 MG/325 MG TAB PO PRN
[2017-11-04 10:37] VITALS: BP 143/72; PULSE 58; RESP 26; TEMP 97.7; O2SAT 100
--- NOTE | 2017-11-04 10:48 | PD ---
HPI Chief Complaint: Flank/Kidney Pain Time Seen by Provider: 10:41 Travel History International Travel<30 days: No Contact w/Intl Traveler<30days: No Traveled to known affect area: No History of Present Illness HPI 47-year-old male presents for evaluation of abdominal pain, nausea, difficulty urinating. Symptoms started this morning when he was driving to work. He reports that he has had kidney stones in the past and this feels similar. He reports that the pain is severe and making him feel like he is going to pass out. He has required lithotripsy in the past performed by Dr. Yang in May 2017. Symptoms are moderate to severe, no aggravating or alleviating factors. He denies any dysuria or hematuria. He has no other complaints at this time. [facility] Past Medical History Cancer: No Cardiovascular Problems: No Diabetes: No Diminished Hearing: No Endocrine: No Genitourinary: No Hepatitis: No Hiatal Hernia: No Immune Disorder: No Musculoskeletal: No Neurologic: No Psychiatric: No Reproductive: No Respiratory: No Thyroid Disease: No Past Surgical History Abdominal Surgery: Yes (APPENDECTOMY) AICD: No Appendectomy: Yes Cardiac Surgery: No Ear Surgery: No Endocrine Surgery: No Eye Surgery: No Genitourinary Surgery: Yes (LITHOTRIPSY) Joint Replacement: No Oral Surgery: No Pacemaker: No Thoracic Surgery: No Other Surgery: Yes Social History Alcohol Use: Yes (weekends) Tobacco Use: Yes (chew) Substance Use: No Allergies-Medications (Allergen,Severity, Reaction): Coded Allergies: No Known Allergies (Verified , 07/02/17) Reported Meds & Prescriptions Reported Meds & Active Scripts Active No Active Prescriptions or Reported Medications Review of Systems Except as stated in HPI: all other systems reviewed are Neg Physical Exam Narrative GENERAL: Well-developed well-nourished male who appears very uncomfortable. SKIN: Warm, diaphoretic. HEAD: Atraumatic. Normocephalic. EYES: Pupils equal and round. No scleral icterus. No injection or drainage. ENT: No nasal bleeding or discharge. Mucous membranes pink and moist. NECK: Trachea midline. No JVD. CARDIOVASCULAR: Regular rate and rhythm. No murmur appreciated. RESPIRATORY: No accessory muscle use. Clear to auscultation. Breath sounds equal bilaterally. GASTROINTESTINAL: Abdomen soft, generalized tenderness to palpation without guarding. No CVA tenderness. MUSCULOSKELETAL: No obvious deformities. No clubbing. No cyanosis. No edema. NEUROLOGICAL: Awake and alert. No obvious cranial nerve deficits. Motor grossly within normal limits. Normal speech. PSYCHIATRIC: Appropriate mood and affect; insight and judgment normal. Data Data Last Documented VS Vital Signs Date Time Temp Pulse Resp B/P (MAP) Pulse Ox O2 Delivery O2 Flow Rate FiO2 11/04/17 10:37 97.7 58 26 143/72 (95) 100 Orders Orders Complete Blood Count With Diff (11/04/17 10:44) Comprehensive Metabolic Panel (11/04/17 10:44) Urinalysis - C+S If Indicated (11/04/17 10:44) Ecg Monitoring (11/04/17 10:44) Iv Access Insert/Monitor (11/04/17 10:44) Ketorolac Inj (Toradol Inj) (11/04/17 10:45) Sodium Chloride 0.9% Flush (Ns Flush) (11/04/17 10:45) Sodium Chlor 0.9% 1000 Ml Inj (Ns 1000 M (11/04/17 10:44) Morphine Inj (Morphine Inj) (11/04/17 10:45) Ct Abd/Pel W/O Iv Contrast (11/04/17 10:45) Admit Order (Ed Use Only) (11/04/17 13:11) Labs Laboratory Tests Test 11/04/17 10:50 11/04/17 10:55 Urine Color YELLOW Urine Turbidity HAZY Urine pH 5.5 Urine Specific [place] 1.025 Urine Protein TRACE mg/dL Urine Glucose (UA) NEG mg/dL Urine Ketones NEG mg/dL Urine Occult Blood LARGE Urine Nitrite NEG Urine Bilirubin NEG Urine Urobilinogen LESS THAN 2.0 MG/DL Urine Leukocyte Esterase NEG Urine RBC 140 /hpf Urine WBC 1 /hpf Urine Calcium Oxalate Crystals MOD /hpf Urine Bacteria OCC /hpf Urine Mucus FEW /lpf Microscopic Urinalysis Comment CULT NOT INDICATED White Blood Count 9.4 TH/MM3 Red Blood Count 5.31 MIL/MM3 Hemoglobin 16.2 GM/DL Hematocrit 47.0 % Mean Corpuscular Volume 88.6 FL Mean Corpuscular Hemoglobin 30.6 PG Mean Corpuscular Hemoglobin Concent 34.5 % Red Cell Distribution Width 12.4 % Platelet Count 271 TH/MM3 Mean Platelet Volume 8.3 FL Neutrophils (%) (Auto) 76.6 % Lymphocytes (%) (Auto) 16.2 % Monocytes (%) (Auto) 5.1 % Eosinophils (%) (Auto) 1.5 % Basophils (%) (Auto) 0.6 % Neutrophils # (Auto) 7.2 TH/MM3 Lymphocytes # (Auto) 1.5 TH/MM3 Monocytes # (Auto) 0.5 TH/MM3 Eosinophils # (Auto) 0.1 TH/MM3 Basophils # (Auto) 0.1 TH/MM3 CBC Comment DIFF FINAL Differential Comment Blood Urea Nitrogen 17 MG/DL Creatinine 1.16 MG/DL Random Glucose 126 MG/DL Total Protein 7.9 GM/DL Albumin 4.4 GM/DL Calcium Level 9.2 MG/DL Alkaline Phosphatase 64 U/L Aspartate Amino Transf (AST/SGOT) 24 U/L Alanine Aminotransferase (ALT/SGPT) 27 U/L Total Bilirubin 0.7 MG/DL Sodium Level 141 MEQ/L Potassium Level 3.8 MEQ/L Chloride Level 108 MEQ/L Carbon Dioxide Level 26.6 MEQ/L Anion Gap 6 MEQ/L Estimat Glomerular Filtration Rate 68 ML/MIN [facility] Medical Decision Making Medical Screen Exam Complete: Yes Emergency Medical Condition: Yes Medical Record Reviewed: Yes Differential Diagnosis Renal stone, hydronephrosis, colitis, diverticulitis, muscle spasm, aortic dissection Narrative Course CT of the abdomen and pelvis was obtained revealing CONCLUSION: 1. Acute obstructive uropathy of the left distal ureter at the left ureterovesical junction secondary to 2 calcified calculi measuring 8 and 7 mm. Moderate ureteral pelvocaliectasis is noted on the left. 2. 4 mm calcified nonobstructing upper pole left renal calculus. 3. 3.4 cm left renal cyst. 4. Uncomplicated colonic diverticulosis. 5. Degenerative disc disease involving L4-5 and L5-S1. The patient was given IV fluids, morphine, Toradol, Zofran, with some improvement of his pain. I discussed with his urologist Dr. Yang who will come and see him at bedside. Dr. Yang plans on taking him to same day surgery likely for ureteral stenting. Diagnosis Primary Impression: Left ureteral calculus Admitting Information Admitting Physician Requests: Observation Scripts No Active Prescriptions or Reported Meds Nilson Barnett Nov 04, 2017 10:48
--- NOTE | 2017-11-04 11:31 | RADRPT ---
EXAM DATE/TIME: 11/04/2017 11:08 [facility] COMPARISON: CT ABDOMEN & PELVIS W/O CONTRAST, June 05, 2017, 7:14. INDICATIONS : Left flank pain. ORAL CONTRAST: No oral contrast ingested. RADIATION DOSE: 8.52 CTDIvol (mGy) MEDICAL HISTORY : Renal calculi. SURGICAL HISTORY : Appendectomy. Lithotripsy ENCOUNTER: Initial ACUITY: 1 day PAIN SCALE: 4/10 LOCATION: Left flank TECHNIQUE: Volumetric scanning of the abdomen and pelvis was performed. Using automated exposure control and ad justment of the mA and/or kV according to patient size, radiation dose was kept as low as reasonably achievable to obtain optimal diagnostic quality images. DICOM format image data is available electro nically for review and comparison. FINDINGS: There is evidence of acute obstructive uropathy of the left distal ureter at the left ureterovesical junction secondary to 2 calcified calculi measuring 8 and 7 mm. Moderate ureteral pelvocaliectasis is noted on the left. There is a calcified nonobstructing upper pole left renal calculus measuring 4 mm . Left renal cyst is noted measuring 3.4 cm. Evaluation of the solid organs of the abdomen is limited by lack of intravenous contrast. Uncomplicated colonic diverticulosis is noted. There is no acute di verticulitis. The urinary bladder is nondistended and its evaluation is limited. Degenerative disc di sease is noted at L4-5 and L5-S1. The visualized lung bases are clear. CONCLUSION: 1. Acute obstructive uropathy of the left distal ureter at the left ureterovesical junction secondary to 2 calcified calculi measuring 8 and 7 mm. Moderate ureteral pelvocaliectasis is noted on the left . 2. 4 mm calcified nonobstructing upper pole left renal calculus. 3. 3.4 cm left renal cyst. 4. Uncomplicated colonic diverticulosis. 5. Degenerative disc disease involving L4-5 and L5-S1. Patrick Napoles MD on November 04, 2017 at 11:21 Board Certified Radiologist. This report was verified electronically.
[2017-11-04 11:34] LABS: AUTOMATED NEUTROPHIL # 7.2 TH/MM3 (1.8-7.7); BASOPHIL # 0.1 TH/MM3 (0-0.2); BASOPHIL % 0.6 % (0.0-2.0); EOSINOPHIL # 0.1 TH/MM3 (0-0.4); EOSINOPHIL % 1.5 % (0.0-4.0); HEMOGLOBIN 16.2 GM/DL (13.0-17.0); LYMPH % 16.2 % (9.0-44.0); LYMPHOCYTE # 1.5 TH/MM3 (1.0-4.8); MEAN CELL VOLUME 88.6 FL (80.0-100.0); MEAN CORPUSCULAR HEMOGLOBIN 30.6 PG (27.0-34.0); MEAN CORPUSCULAR HGB CONC 34.5 % (32.0-36.0); MEAN PLATELET VOLUME 8.3 FL (7.0-11.0); MONO % 5.1 % (0.0-8.0); MONOCYTE # 0.5 TH/MM3 (0-0.9); NEUT % 76.6 % (16.0-70.0); PLATELET COUNT 271 TH/MM3 (150-450); RED BLOOD COUNT 5.31 MIL/MM3 (4.50-5.90); RED CELL DISTRIBUTION WIDTH 12.4 % (11.6-17.2); WHITE BLOOD COUNT 9.4 TH/MM3 (4.0-11.0)
[2017-11-04 11:38] LABS: BACTERIA, URINE OCC /hpf; BILIRUBIN, URINE NEG (NEG); BLOOD, URINE LARGE (NEG); CALCIUM OXALATE CRYSTALS,URINE MOD /hpf; GLUCOSE,URINE NEG (NEG); KETONE, URINE NEG (NEG); MUCUS URINE FEW /lpf (OCC); NITRITE,URINE NEG (NEG); PH, URINE 5.5 (5.0-8.5); URINE COLOR YELLOW (YELLW/STRAW); URINE LEUKOCYTE ESTERASE NEG (NEG)
[2017-11-04 11:56] LABS: ALBUMIN 4.4 GM/DL (3.4-5.0); ALT (GPT) 27 U/L (12-78); AST (GOT) 24 U/L (15-37); BICARBONATE 26.6 MEQ/L (21.0-32.0); BLOOD UREA NITROGEN 17 MG/DL (7-18); CALCIUM 9.2 MG/DL (8.5-10.1); CHLORIDE 108 MEQ/L (98-107); CREATININE 1.16 MG/DL (0.60-1.30); GLOMERULAR FILTRATION RATE 68 ML/MIN (>89); GLUCOSE,RANDOM 126 MG/DL (74-106); SODIUM (NA) 141 MEQ/L (136-145)
[2017-11-04 11:58] LABS: ALKALINE PHOSPHATASE 64 U/L (45-117); TOTAL BILIRUBIN ADULT 0.7 MG/DL (0.2-1.0); TOTAL PROTEIN 7.9 GM/DL (6.4-8.2)
--- NOTE | 2017-11-04 13:31 | PD ---
Data Data Last Documented VS Vital Signs Date Time Temp Pulse Resp B/P (MAP) Pulse Ox O2 Delivery O2 Flow Rate FiO2 11/04/17 10:37 97.7 58 26 143/72 (95) 100 Orders Orders Complete Blood Count With Diff (11/04/17 10:44) Comprehensive Metabolic Panel (11/04/17 10:44) Urinalysis - C+S If Indicated (11/04/17 10:44) Ecg Monitoring (11/04/17 10:44) Iv Access Insert/Monitor (11/04/17 10:44) Ketorolac Inj (Toradol Inj) (11/04/17 10:45) Sodium Chloride 0.9% Flush (Ns Flush) (11/04/17 10:45) Sodium Chlor 0.9% 1000 Ml Inj (Ns 1000 M (11/04/17 10:44) Morphine Inj (Morphine Inj) (11/04/17 10:45) Ct Abd/Pel W/O Iv Contrast (11/04/17 10:45) Admit Order (Ed Use Only) (11/04/17 13:11) Labs Laboratory Tests Test 11/04/17 10:50 11/04/17 10:55 Urine Color YELLOW Urine Turbidity HAZY Urine pH 5.5 Urine Specific [place] 1.025 Urine Protein TRACE mg/dL Urine Glucose (UA) NEG mg/dL Urine Ketones NEG mg/dL Urine Occult Blood LARGE Urine Nitrite NEG Urine Bilirubin NEG Urine Urobilinogen LESS THAN 2.0 MG/DL Urine Leukocyte Esterase NEG Urine RBC 140 /hpf Urine WBC 1 /hpf Urine Calcium Oxalate Crystals MOD /hpf Urine Bacteria OCC /hpf Urine Mucus FEW /lpf Microscopic Urinalysis Comment CULT NOT INDICATED White Blood Count 9.4 TH/MM3 Red Blood Count 5.31 MIL/MM3 Hemoglobin 16.2 GM/DL Hematocrit 47.0 % Mean Corpuscular Volume 88.6 FL Mean Corpuscular Hemoglobin 30.6 PG Mean Corpuscular Hemoglobin Concent 34.5 % Red Cell Distribution Width 12.4 % Platelet Count 271 TH/MM3 Mean Platelet Volume 8.3 FL Neutrophils (%) (Auto) 76.6 % Lymphocytes (%) (Auto) 16.2 % Monocytes (%) (Auto) 5.1 % Eosinophils (%) (Auto) 1.5 % Basophils (%) (Auto) 0.6 % Neutrophils # (Auto) 7.2 TH/MM3 Lymphocytes # (Auto) 1.5 TH/MM3 Monocytes # (Auto) 0.5 TH/MM3 Eosinophils # (Auto) 0.1 TH/MM3 Basophils # (Auto) 0.1 TH/MM3 CBC Comment DIFF FINAL Differential Comment Blood Urea Nitrogen 17 MG/DL Creatinine 1.16 MG/DL Random Glucose 126 MG/DL Total Protein 7.9 GM/DL Albumin 4.4 GM/DL Calcium Level 9.2 MG/DL Alkaline Phosphatase 64 U/L Aspartate Amino Transf (AST/SGOT) 24 U/L Alanine Aminotransferase (ALT/SGPT) 27 U/L Total Bilirubin 0.7 MG/DL Sodium Level 141 MEQ/L Potassium Level 3.8 MEQ/L Chloride Level 108 MEQ/L Carbon Dioxide Level 26.6 MEQ/L Anion Gap 6 MEQ/L Estimat Glomerular Filtration Rate 68 ML/MIN MDM Supervised Visit with HANK: Yes Narrative Course The history, exam, and medical decision-making in the associated midlevel provider note were completed with my assistance. I reviewed and agree with the findings presented. I attest that I had a [id number] encounter with the patient on the same day, and personally performed and documented my assessment and findings in the medical record. *My assessment and Findings: This is a 47-year-old male who presents to the emergency department with flank pain. He has a history of kidney stones. He has 2 large stones at the UVJ. Dr. Yang is his urologist. He saw him here in the emergency department and plans to take the patient to same-day surgery. Patient is otherwise nontoxic appearing and will be transitioned to preop. Diagnosis Primary Impression: Left ureteral calculus Scripts No Active Prescriptions or Reported Meds Christie Milton MD Nov 04, 2017 13:31
[2017-11-04 13:37] VITALS: BP 129/87; PULSE 65; RESP 18; O2SAT 98
--- NOTE | 2017-11-04 14:24 | MH ---
cc: SUGAR KWAN DATE OF ADMISSION: 11/04/2017 HISTORY OF PRESENT ILLNESS Mr. Grant is a pleasant 47-year-old male who presented with left-sided flank pain and some mild nausea this morning. CT scan in the emergency room showed two stones at the distal left ureteral orifice, one was 6 mm and the other one was 8 mm. He had mild to moderate left-sided hydronephrosis. He does have a history of kidney stones in the past and underwent lithotripsy back in May of 2017. PAST MEDICAL HISTORY He notes a history of nephrolithiasis. PAST SURGICAL HISTORY Lithotripsy and appendectomy. SOCIAL HISTORY Alcohol usage is noted on the weekends. He does chew tobacco but denies any drug use. ALLERGIES NO KNOWN DRUG ALLERGIES. MEDICATION No reported medications are noted. REVIEW OF SYSTEMS Left-sided flank pain and some abdominal pain with nausea. No fever or chills. No chest pain or shortness of breath. No diarrhea or constipation. No gait disturbances. No bleeding disorders. No voiding complaints. No psychiatric issues. The remaining review of systems were reviewed and were negative. PHYSICAL EXAMINATION VITAL SIGNS: Temperature 97.7, heart rate 65, respiratory rate 18, 129/87 is blood pressure, 98% on room air. GENERAL: He is a well-developed, well-nourished 47-year-old male in no acute distress. HEENT: Normocephalic, atraumatic. Pupils equal, round, reactive to light. Extraocular movements intact. NECK: Supple. HEART: Regular rate and rhythm. LUNGS: Clear. ABDOMEN: Soft. There is mild left lower quadrant tenderness and mild left CVA tenderness is noted. : Normal phallus. Testes are descended. EXTREMITIES: Show no cyanosis, clubbing or edema. Cranial nerves II-XII are intact. PSYCHE: Generalized mood. LABORATORY DATA White count is 9.4, hemoglobin 16.2, hematocrit 47.0, platelet count 271, sodium 141, potassium 3.8, chloride 108, CO2 26.6, BUN of 17, creatinine 1.8, glucose of 129. Urinalysis shows 140 red cells with 1 white cell. IMAGING STUDIES Imaging studies again showed two stones at the left UVJ, one 6 mm and the other 8 with mild to moderate left-sided hydroureteronephrosis. ASSESSMENT This is a 47-year-old male with two stones located at the UVJ causing mild to moderate hydronephrosis with abdominal pain. The patient has been n.p.o. since 07:30 this morning. Recommend cystoscopy with stone extraction, possible ureteroscopy with laser, with possible stent insertion. Risk and benefits were discussed preop and he was willing to proceed. Sugar TERAN /2:00 PM /2:13 PM
--- NOTE | 2017-11-04 16:32 | PD.OP ---
Operative Report Date of Surgery: Nov 04, 2017 Preoperative Diagnosis: Left ureteral stones with hydronephrosis Postoperative Diagnosis: Same Procedure: Cystoscopy, left ureteroscopy, laser lithotripsy, stone extraction, left retrograde pyelogram, left double-J stent insertion Anesthesia: ENRIQUEA Surgeon: Cecilio Yang Pumper Hand(s): None Resident Surgeon: None Operation and Findings: 47-year-old male presented to the emergency room today with a 6 and 8 mm left UVJ stone causing obstruction. Decision made. Patient to the operating undergo cystoscopy with left ureteroscopy, laser lithotripsy with stone extraction and left double-J stent insertion. Risk and benefits were discussed preoperatively and he was willing to proceed. Patient was brought to the operating room and placed in the dorsal lithotomy position, prepped very mu sterile fashion, received preprocedure antibiotics and general endotracheal tube anesthesia was administered. 20 [place] the scope was inserted in the bladder and mueller cystoscopy did not reveal any abnormalities. The left ureteral orifice was identified and a 5 [place] open-ended catheter was inserted into the left ureteral orifice. A 0.35 sensor wire was then passed through the opening catheter and up into the kidney. The catheter was then removed. A short rigid ureteroscope was then passed along the wire into stones were identified in the distal ureter. A 365 laser fiber was then used to fragment the stones. A nitinol basket was then used to retrieve the residual stone fragments. A retrograde pyelogram was performed through the scope and no filling defects were noted above the UVJ. The cystoscope was then reinserted in the bladder and a 6 [place] 24 cm left double-J stent was placed in good position. Stone fragments were then sent to pathology. The patient tolerated the procedure well follow-up in the office in 1-2 weeks to undergo cystoscopy with stent removal and to review the stone analysis at that time. Cecilio Yang DO Nov 04, 2017 16:32
[2017-11-04 18:01] VITALS: BP 121/82; PULSE 58; RESP 20; TEMP 97.9; O2SAT 100
--- NOTE | 2017-11-04 18:34 | RADRPT ---
EXAM DATE/TIME: 11/04/2017 00:00 [facility] COMPARISON: CT ABDOMEN & PELVIS W/O CONTRAST, November 04, 2017, 11:08. INDICATIONS : Lithotripsy. Retrograde pyleogram with left stent placement. MEDICAL HISTORY : Renal calculi. SURGICAL HISTORY : Appendectomy. ENCOUNTER: Initial ACUITY: 1 day PAIN SCORE: Non-responsive. LOCATION: Left Abdomen FINDINGS: A single view centered over the left kidney shows upper portions of a ureteral stent, grossly appropr iately positioned. There is contrast opacifying the left renal collecting system that appears mildly distended. CONCLUSION: Left ureteral stent present and the upper pigtail projects over the mid zone of the left kidney. Mild hydronephrosis. No perceptible stone. Ez Gonzalez MD on November 04, 2017 at 18:31 Board Certified Radiologist. This report was verified electronically.
== END | disposition home or self-care (01) ==
LOC: NEPD 10:34 → NED 13:16
PROVIDERS: ATTEND Urology
DX: N13.2 Hydronephrosis with renal and ureteral calculous obstruction (principal); N28.1 Cyst of kidney, acquired; M51.37 Other intervertebral disc degeneration, lumbosacral region; K57.30 Diverticulosis of large intestine without perforation or abscess without bleeding; Z72.0 Tobacco use
CPT/HCPCS: 00910; 52356; 74176; 74420; 80053; 81001; 82365; 82370; 85025; 88300; 96361; 96374; 96375; 99285; C1726; C1769; C2617; J0131; J0330; J0690; J1100; J1885; J2250; J2270; J2405; J3010; J7030; J7120; Q9967; 74018; 76000